=== PATIENT | female | born 1930 | race Caucasian/White ===

== ENCOUNTER 2016-05-18 10:21 | Emergency (ER) | payer OTHER ==
[~2016-05-18] VITALS: Ht 165.1 cm; Wt 49.0 kg
[~2016-05-18 10:21] MED LIST: ATEN-60; BUDE160A3; DIGO0.2570; FENT75DI2 TD; GABA-494; ISOS60TA24; LIS10T PO; LOSA50TA6; MEC25T PO; OMEP20TA69; OXYB5TAB62; PAROXETINE PO; PERCOT PO; PROM25TA5; PROMETHEGAN RE; SIMV10TA84; ZOLP10TA PO
[2016-05-18 11:36] LABS: Basophils # (auto) 0 uL; Basophils % (auto) 0.1 % (0.0-2.0); DEFINITIVE VIEW TRANSMISSION; Eosinophils # (auto) 0.4 uL; Eosinophils % (auto) 5.5 % (0.0-7.0); Hematocrit 29.3 % (36.0-46.0); Hemoglobin 9.1 g/dL (12.2-16.2); Lymphocytes # (auto) 2.4 uL; Lymphocytes % (auto) 33.4 % (10.0-50.0); Mean Corpuscular Hemoglobin 22.5 pg (28.0-32.0); Mean Corpuscular Hgb Conc. 31.1 g/dL (32.0-36.0); Mean Corpuscular Volume 72.4 fL (80.0-100.0); Monocytes # (auto) 0.9 uL; Monocytes % (auto) 12.1 % (0.0-12.0); Neutrophils # (auto) 3.5 uL; Neutrophils % (auto) 48.9 % (37.0-80.0); Platelet Count (auto) 395 10^3/uL (140-450); Red Cell Distribution Width 17.6 % (11.6-16.0); White Blood Cell 7.2 10^3/uL (4.4-10.8)
[2016-05-18 11:59] LABS: Albumin 3.9 g/dL (3.4-5.0); BUN/Creatinine Ratio 23.3; Bilirubin, Total 0.3 mg/dL (0.2-1.0); Calcium 8.9 mg/dL (8.5-10.1); INR 1.08 (0.9-1.15); Potassium 3.5 mmol/L (3.5-5.1); Prothrombin Time 11.1 sec (9.37-12.3); Total Protein 8.1 g/dL (6.4-8.2)
[2016-05-18 12:11] LABS: Urine Bilirubin Negative (Negative); Urine Blood Negative /uL (Negative); Urine Color Colorless (Yellow); Urine Glucose Normal (Normal); Urine Ketone Negative (Negative); Urine Nitrite Negative (Negative); Urine RBC 2 /hpf (0 - 4); Urine Squamous Epithelial Cell FEW /hpf (<5); Urine Urobilinogen Normal (Negative); Urine pH 6.5 (5.0-8.0)
[2016-05-18 14:16] VITALS: BP 171/91
== END 2016-05-18 16:56 | disposition home or self-care (01) ==
LOC: ER 10:29
DX: D50.9 Iron deficiency anemia, unspecified (principal); Z86.73 Personal history of transient ischemic attack (TIA), and cerebral infarction without residual deficits; J44.9 Chronic obstructive pulmonary disease, unspecified; I10 Essential (primary) hypertension; E07.9 Disorder of thyroid, unspecified; Z79.899 Other long term (current) drug therapy
CPT/HCPCS: 36415; 71010; 80053; 81001; 85025; 85049; 85610

== ENCOUNTER 2017-07-20 08:56 | Inpatient (IN) | payer OTHER ==
[~2017-07-20] VITALS: Ht 152.4 cm; Wt 55.8 kg
[~2017-07-20 08:56] MED LIST changes: +CIPR-187 PO; -GABA-494; +GABA100C9
[2017-07-20] MEDS ORDERED: SODIUM CHLORIDE 0.9% 1,000 ML IV ONE ×2 (09:09→14:00)
[2017-07-20] MEDS ORDERED: LEVOFLOXACIN 500MG 100 ML IV ONE (09:15)
[2017-07-20] MEDS ORDERED: DILTIAZEM HCL 25 MG/5 ML VIAL IV ONE (09:15)
[2017-07-20 09:32] LABS: Hematocrit 39.1 % (36.0-46.0); Hemoglobin 13.2 g/dL (12.2-16.2); Mean Corpuscular Hemoglobin 29.6 pg (28.0-32.0); Mean Corpuscular Hgb Conc. 33.7 g/dL (32.0-36.0); Mean Corpuscular Volume 87.7 fL (80.0-100.0); Platelet Count (auto) 280 10^3/uL (140-450); Red Blood Cells 4.46 10^6/uL (4.0-5.20); Red Cell Distribution Width 15.4 % (11.8-14.3)
[2017-07-20 09:40] LABS: Basophils % (manual) 0 (0.0-2.0); Blast Cells 0; Metamyelocytes % 0; Myelocytes % 0; Promyelocytes % 0; Reactive Lymphocytes 0
[2017-07-20] MEDS ORDERED: DIGOXIN (250MCG/ML) 2 ML AMPULE IV ONE (09:45)
[2017-07-20] MEDS ORDERED: ONDANSETRON HCL 4 MG/2 ML VIAL IV ONE (10:15)
[2017-07-20] MEDS ORDERED: MORPHINE SULFATE 4 MG/ML SYR/VIAL IV ONE (10:15)
[2017-07-20 10:56] LABS: Urine Bacteria MANY /hpf (None Seen); Urine Blood 3+ /uL (Negative); Urine Specific Gravity 1.012 (1.001-1.035); Urine WBC 303 /hpf (0 - 5)
[2017-07-20 11:00] LABS: BUN/Creatinine Ratio 30.3; Potassium 4.4 mmol/L (3.5-5.1)
[2017-07-20 11:01] LABS: Bilirubin, Total 0.8 mg/dL (0.2-1.0); Calcium 7.5 mg/dL (8.5-10.1); Magnesium 2.6 mg/dL (1.6-2.6); Total Protein 6.2 g/dL (6.4-8.2)
[2017-07-20 11:30] LABS: Band Neutrophils % (manual) 1; Eosinophils % (manual) 1 (0-7); Lymphocytes % (manual) 8 (10.0-50.0); Monocytes % (manual) 4 (0-12)
[2017-07-20] MEDS ORDERED: ONDANSETRON HCL 4 MG/2 ML VIAL IV PRN (12:45)
[2017-07-20] MEDS ORDERED: ALUM & MAG HYDROX-SIMETH LIQ(MAALOX) 30 ML PO ONE (12:45)
[2017-07-20] MEDS ORDERED: ZOLPIDEM TARTRATE 5 MG TAB PO PRN (12:45)
[2017-07-20] MEDS ORDERED: MORPHINE SULFATE 4 MG/ML SYR/VIAL IV PRN ×2 (12:45)
[2017-07-20] MEDS ORDERED: ACETAMINOPHEN 325 MG TAB PO PRN (12:45)
[2017-07-20] MEDS ORDERED: NITROGLYCERIN 0.4 MG SL TAB SL PRN ×2 (12:45)
[2017-07-20] MEDS ORDERED: LORazepam 0.5 MG TAB PO PRN (12:45)
[2017-07-20] MEDS ORDERED: DILTIAZEM HCL 25 MG/5 ML VIAL IV PRN (13:00)
[2017-07-20] MEDS ORDERED: PANTOPRAZOLE 40 MG TAB PO ONE (13:00)
[2017-07-20] MEDS ORDERED: MECLIZINE HCL 25 MG TAB PO PRN (13:00)
[2017-07-20] MEDS ORDERED: fentaNYL 75MCG/HR 75 MCG/HR PAT TD SCH (13:00)
[2017-07-20] MEDS ORDERED: POTASSIUM CHL 10 Meq TABLET PO ONE ×2 (13:00→13:30)
[2017-07-20] MEDS ORDERED: FUROSEMIDE 40 MG/4 ML VIAL IV ONE (13:00)
[2017-07-20] MEDS ORDERED: cefTRIAXone 1GM/10ml IVPUSH 10 ML IV ONE ×2 (13:00→13:30)
[2017-07-20] MEDS ORDERED: CLOPIDOGREL BISULFATE 75 MG TAB PO ONE (13:15)
[2017-07-20] MEDS ORDERED: DOCUSATE SOD 100 MG CAP PO ONE (13:15)
[2017-07-20] MEDS ORDERED: ASPirin 81 mg TAB PO ONE (13:15)
[2017-07-20] MEDS ORDERED: CARVEDILOL 3.125 MG TAB PO ONE (13:15)
[2017-07-20] MEDS ORDERED: ENOXAPARIN SOD 60 MG/0.6 ML SYRINGE SC ONE (13:30)
[2017-07-20] MEDS ORDERED: GABAPENTIN 100 MG CAP PO ONE (13:30)
[2017-07-20] MEDS ORDERED: BUDESONIDE (INHALATION) 0.5 MG/2 ML NEB NEB ONE (13:30)
[2017-07-20] MEDS ORDERED: ISOSORBIDE MONONITRATE 60 MG TAB PO ONE (13:30)
[2017-07-20] MEDS ORDERED: OXYBUTYNIN CHL 5 MG TAB PO ONE (13:30)
[2017-07-20] MEDS ORDERED: PARoxetine 20 MG TAB PO ONE (13:30)
[2017-07-20] MEDS: GABAPENTIN 100 MG CAP PO SCH ×2 (13:31→22:25)
[2017-07-20] MEDS ORDERED: METOPROLOL TARTRATE 25 MG TAB PO SCH (14:00)
[2017-07-20] MEDS: SODIUM CHLOR 0.9% PF (SALINE LOCK) 10ML VIAL IV SCH ×2 (14:07→22:26)
[2017-07-20] MEDS: AMIODARONE HCL 200 MG TAB PO SCH ×2 (14:14→22:26)
[2017-07-20 15:02] VITALS: BP 121/66
[2017-07-20] MEDS: fentaNYL 25MCG/HR 25 MCG/HR PAT TD SCH (16:43)
[2017-07-20] MEDS ORDERED: SODIUM CHLORIDE 0.9% 250 ML IV ONE (17:45)
[2017-07-20] MEDS: BUDESONIDE (INHALATION) 0.5 MG/2 ML NEB NEB SCH (18:25)
[2017-07-20] MEDS ORDERED: CARVEDILOL 3.125 MG TAB PO SCH (22:00)
[2017-07-20] MEDS ORDERED: LISINOPRIL 10 MG TAB PO SCH (22:00)
[2017-07-20] MEDS ORDERED: ENOXAPARIN SOD 60 MG/0.6 ML SYRINGE SC SCH (22:00)
[2017-07-20] MEDS ORDERED: ATORVASTATIN 20 MG TAB PO SCH (22:00)
[2017-07-20] MEDS: METOPROLOL TARTRATE 25 MG TAB PO SCH (22:25)
[2017-07-20] MEDS: OXYBUTYNIN CHL 5 MG TAB PO SCH (22:26)
[2017-07-20] MEDS: APIXABAN 2.5 MG TAB PO SCH (22:26)
[2017-07-20] MEDS: ATORVASTATIN 20 MG TAB PO SCH (22:26)
[2017-07-21] MEDS ORDERED: PIPERACILLIN-TAZOB 2.25GM 50 ML IV ONE (02:49)
[2017-07-21] MEDS: PIPERACILLIN-TAZOB 2.25GM 50 ML IV SCH ×4 (02:50→22:34)
[2017-07-21] MEDS: ACETAMINOPHEN 325 MG TAB PO PRN ×2 (02:50→12:09)
[2017-07-21] MEDS: SODIUM CHLORIDE 0.9% 1,000 ML IV SCH ×2 (03:55→17:05)
[2017-07-21 04:15] VITALS: BP 137/60
[2017-07-21] MEDS ORDERED: PIPERACILLIN-TAZOB 2.25GM 50 ML IV SCH ×2 (06:00→07:00)
[2017-07-21] MEDS: SODIUM CHLOR 0.9% PF (SALINE LOCK) 10ML VIAL IV SCH ×3 (06:17→22:33)
[2017-07-21] MEDS: AMIODARONE HCL 200 MG TAB PO SCH ×3 (06:25→22:00)
[2017-07-21] MEDS: GABAPENTIN 100 MG CAP PO SCH ×3 (06:36→22:32)
[2017-07-21 06:43] LABS: Albumin 1.7 g/dL (3.4-5.0); Bilirubin, Total 0.6 mg/dL (0.2-1.0); Calcium 7.3 mg/dL (8.5-10.1); Magnesium 2.1 mg/dL (1.6-2.6); Total Protein 5.7 g/dL (6.4-8.2)
[2017-07-21 07:36] LABS: Basophils # (auto) 0.1 uL; Basophils % (auto) 0.3 % (0.0-2.0); Eosinophils # (auto) 0.1 uL; Eosinophils % (auto) 0.8 % (0.0-7.0); Hematocrit 33.4 % (36.0-46.0); Hemoglobin 11.1 g/dL (12.2-16.2); Lymphocytes # (auto) 0.8 uL; Lymphocytes % (auto) 5.2 % (10.0-50.0); Mean Corpuscular Hemoglobin 29.1 pg (28.0-32.0); Mean Corpuscular Hgb Conc. 33.2 g/dL (32.0-36.0); Mean Corpuscular Volume 87.8 fL (80.0-100.0); Monocytes # (auto) 1.1 uL; Neutrophils # (auto) 13.9 uL; Neutrophils % (auto) 86.7 % (37.0-80.0); Platelet Count (auto) 260 10^3/uL (140-450); Red Cell Distribution Width 15.1 % (11.8-14.3)
[2017-07-21 08:00] VITALS: BP 115/75
[2017-07-21] MEDS ORDERED: cefTRIAXone 1GM/10ml IVPUSH 10 ML IV SCH (09:00)
[2017-07-21] MEDS ORDERED: CLOPIDOGREL BISULFATE 75 MG TAB PO SCH (10:00)
[2017-07-21] MEDS ORDERED: ISOSORBIDE MONONITRATE 60 MG TAB PO SCH (10:00)
[2017-07-21] MEDS ORDERED: LOSARTAN POTASSIUM 25 MG TAB PO SCH (10:00)
[2017-07-21] MEDS ORDERED: ENOXAPARIN SOD 60 MG/0.6 ML SYRINGE SC SCH (10:00)
[2017-07-21] MEDS ORDERED: DIGOXIN 0.25 MG TAB PO SCH (10:00)
[2017-07-21] MEDS ORDERED: FUROSEMIDE 40 MG/4 ML VIAL IV SCH (10:00)
[2017-07-21] MEDS: BUDESONIDE (INHALATION) 0.5 MG/2 ML NEB NEB SCH ×2 (10:13→20:48)
[2017-07-21] MEDS: ASPirin 81 mg TAB PO SCH (10:15)
[2017-07-21] MEDS: POTASSIUM CHL 10 Meq TABLET PO SCH (10:15)
[2017-07-21] MEDS: OXYBUTYNIN CHL 5 MG TAB PO SCH ×2 (10:15→22:32)
[2017-07-21] MEDS: PANTOPRAZOLE 40 MG TAB PO SCH (10:16)
[2017-07-21] MEDS: APIXABAN 2.5 MG TAB PO SCH ×2 (10:16→22:33)
[2017-07-21] MEDS: DOCUSATE SOD 100 MG CAP PO SCH (10:16)
[2017-07-21] MEDS: METOPROLOL TARTRATE 25 MG TAB PO SCH ×2 (10:16→22:00)
[2017-07-21] MEDS: PARoxetine 20 MG TAB PO SCH (10:17)
[2017-07-21 11:50] VITALS: BP 103/47
[2017-07-21 15:50] VITALS: BP 99/46
[2017-07-21 21:49] VITALS: BP 99/58
[2017-07-21] MEDS: ATORVASTATIN 20 MG TAB PO SCH (22:32)
[2017-07-22 05:00] VITALS: BP 116/69
[2017-07-22] MEDS: PIPERACILLIN-TAZOB 2.25GM 50 ML IV SCH ×3 (05:22→17:30)
[2017-07-22] MEDS: SODIUM CHLORIDE 0.9% 1,000 ML IV SCH ×2 (05:40→17:30)
[2017-07-22] MEDS: SODIUM CHLOR 0.9% PF (SALINE LOCK) 10ML VIAL IV SCH ×3 (05:40→22:00)
[2017-07-22 05:41] LABS: Hemoglobin 11.2 g/dL (12.2-16.2); Mean Corpuscular Hemoglobin 29.3 pg (28.0-32.0); Mean Corpuscular Volume 88.9 fL (80.0-100.0); Platelet Count (auto) 298 10^3/uL (140-450); Red Blood Cells 3.82 10^6/uL (4.0-5.20); Red Cell Distribution Width 15.3 % (11.8-14.3)
[2017-07-22] MEDS: GABAPENTIN 100 MG CAP PO SCH ×3 (05:41→22:53)
[2017-07-22] MEDS: AMIODARONE HCL 200 MG TAB PO SCH ×3 (05:42→22:53)
[2017-07-22] MEDS: ACETAMINOPHEN 325 MG TAB PO PRN (05:42)
[2017-07-22 05:49] LABS: Basophils % (manual) 0 (0.0-2.0); Myelocytes % 0; Promyelocytes % 0
[2017-07-22 05:50] LABS: Blast Cells 0; Reactive Lymphocytes 0
[2017-07-22 05:59] LABS: BUN/Creatinine Ratio 32.7; Calcium 7.8 mg/dL (8.5-10.1); Magnesium 2.1 mg/dL (1.6-2.6); Phosphorus 3.4 mg/dL (2.5-4.90); Potassium 4.2 mmol/L (3.5-5.1)
[2017-07-22 06:11] LABS: Band Neutrophils % (manual) 4; Eosinophils % (manual) 3 (0-7); Lymphocytes % (manual) 6 (10.0-50.0); Metamyelocytes % 3; Monocytes % (manual) 10 (0-12)
[2017-07-22 09:00] VITALS: BP 122/66
[2017-07-22] MEDS: BUDESONIDE (INHALATION) 0.5 MG/2 ML NEB NEB SCH ×2 (10:16→22:00)
[2017-07-22] MEDS: POTASSIUM CHL 10 Meq TABLET PO SCH (10:19)
[2017-07-22] MEDS: PARoxetine 20 MG TAB PO SCH (10:20)
[2017-07-22] MEDS: DOCUSATE SOD 100 MG CAP PO SCH (10:20)
[2017-07-22] MEDS: PANTOPRAZOLE 40 MG TAB PO SCH (10:20)
[2017-07-22] MEDS: ASPirin 81 mg TAB PO SCH (10:20)
[2017-07-22] MEDS: APIXABAN 2.5 MG TAB PO SCH ×2 (10:20→22:53)
[2017-07-22] MEDS: OXYBUTYNIN CHL 5 MG TAB PO SCH ×2 (10:21→22:53)
[2017-07-22] MEDS: METOPROLOL TARTRATE 25 MG TAB PO SCH ×2 (10:21→22:55)
[2017-07-22 13:00] VITALS: BP 114/100
[2017-07-22 17:24] VITALS: BP_SYST 107
[2017-07-22] MEDS: HYDROcodone-ACET 5/325MG TAB PO PRN (17:30)
[2017-07-22 22:00] VITALS: BP 112/53
[2017-07-22] MEDS: ATORVASTATIN 20 MG TAB PO SCH (22:52)
[2017-07-23] VITALS (7 sets, daily range): BP systolic 112–136; BP diastolic 40–63
[2017-07-23] MEDS: PIPERACILLIN-TAZOB 2.25GM 50 ML IV SCH ×4 (00:55→18:55)
[2017-07-23] MEDS: AMIODARONE HCL 200 MG TAB PO SCH ×3 (05:38→22:54)
[2017-07-23] MEDS: SODIUM CHLOR 0.9% PF (SALINE LOCK) 10ML VIAL IV SCH ×3 (05:38→22:00)
[2017-07-23] MEDS: GABAPENTIN 100 MG CAP PO SCH ×3 (05:38→22:54)
[2017-07-23] MEDS: HYDROcodone-ACET 5/325MG TAB PO PRN (08:51)
[2017-07-23] MEDS: SODIUM CHLORIDE 0.9% 1,000 ML IV SCH ×2 (08:52→22:55)
[2017-07-23] MEDS: BUDESONIDE (INHALATION) 0.5 MG/2 ML NEB NEB SCH ×2 (09:35→22:28)
[2017-07-23] MEDS: ASPirin 81 mg TAB PO SCH (10:52)
[2017-07-23] MEDS: DOCUSATE SOD 100 MG CAP PO SCH (10:52)
[2017-07-23] MEDS: OXYBUTYNIN CHL 5 MG TAB PO SCH ×2 (10:52→22:53)
[2017-07-23] MEDS: POTASSIUM CHL 10 Meq TABLET PO SCH (10:52)
[2017-07-23] MEDS: PARoxetine 20 MG TAB PO SCH (10:53)
[2017-07-23] MEDS: APIXABAN 2.5 MG TAB PO SCH (10:53)
[2017-07-23] MEDS: PANTOPRAZOLE 40 MG TAB PO SCH (10:53)
[2017-07-23] MEDS: METOPROLOL TARTRATE 25 MG TAB PO SCH ×2 (10:53→22:54)
[2017-07-23] MEDS ORDERED: HEPARIN DRIP/D5W 100UNITS/ML 250 ML IV SCH ×2 (13:00→20:45)
[2017-07-23 13:59] LABS: INR 1.64 (0.9-1.15); Partial Thromboplastin Time 42.6 sec (22.64-33.71)
[2017-07-23 14:00] LABS: Hematocrit 32.1 % (36.0-46.0); Hemoglobin 10.6 g/dL (12.2-16.2); Mean Corpuscular Volume 87.9 fL (80.0-100.0); Platelet Count (auto) 347 10^3/uL (140-450); Red Blood Cells 3.65 10^6/uL (4.0-5.20); Red Cell Distribution Width 15.4 % (11.8-14.3); White Blood Cell 15.6 10^3/uL (4.4-10.8)
[2017-07-23 14:17] LABS: Basophils % (manual) 0 (0.0-2.0); Blast Cells 0; Metamyelocytes % 0; Myelocytes % 0; Promyelocytes % 0; Reactive Lymphocytes 0
[2017-07-23 14:25] LABS: Band Neutrophils % (manual) 2; Eosinophils % (manual) 7 (0-7); Lymphocytes % (manual) 5 (10.0-50.0); Monocytes % (manual) 8 (0-12)
[2017-07-23] MEDS: fentaNYL 25MCG/HR 25 MCG/HR PAT TD SCH (16:19)
[2017-07-23 19:50] LABS: INR 1.59 (0.9-1.15); Partial Thromboplastin Time 48.8 sec (22.64-33.71); Prothrombin Time 17.4 sec (9.37-12.3)
[2017-07-23] MEDS: ATORVASTATIN 20 MG TAB PO SCH (22:53)
[2017-07-24] MEDS: PIPERACILLIN-TAZOB 2.25GM 50 ML IV SCH ×3 (01:35→11:56)
[2017-07-24 05:00] VITALS: BP 137/69
[2017-07-24 05:20] LABS: INR 1.39 (0.9-1.15); Partial Thromboplastin Time 65.5 sec (22.64-33.71); Prothrombin Time 15.2 sec (9.37-12.3)
[2017-07-24] MEDS: SODIUM CHLOR 0.9% PF (SALINE LOCK) 10ML VIAL IV SCH ×2 (06:12→15:03)
[2017-07-24] MEDS: GABAPENTIN 100 MG CAP PO SCH ×2 (06:13→15:05)
[2017-07-24] MEDS: AMIODARONE HCL 200 MG TAB PO SCH ×2 (06:13→15:05)
[2017-07-24 06:34] LABS: Potassium 4.4 mmol/L (3.5-5.1)
[2017-07-24 06:35] LABS: BUN/Creatinine Ratio 27.5; Calcium 7.6 mg/dL (8.5-10.1)
[2017-07-24 06:53] LABS: Hematocrit 34.4 % (36.0-46.0); Hemoglobin 11.3 g/dL (12.2-16.2); Mean Corpuscular Hemoglobin 29.2 pg (28.0-32.0); Mean Corpuscular Hgb Conc. 32.8 g/dL (32.0-36.0); Platelet Count (auto) 345 10^3/uL (140-450); Red Blood Cells 3.87 10^6/uL (4.0-5.20); Red Cell Distribution Width 15.6 % (11.8-14.3); White Blood Cell 13.7 10^3/uL (4.4-10.8)
[2017-07-24 06:58] LABS: Basophils % (manual) 0 (0.0-2.0); Blast Cells 0; Metamyelocytes % 0; Myelocytes % 0; Promyelocytes % 0; Reactive Lymphocytes 0
[2017-07-24 07:30] VITALS: BP 164/75
[2017-07-24 09:00] VITALS: BP 164/75
[2017-07-24] MEDS: HYDROcodone-ACET 5/325MG TAB PO PRN ×2 (09:09→19:02)
[2017-07-24 09:46] LABS: INR 1.35 (0.9-1.15); Partial Thromboplastin Time 49.5 sec (22.64-33.71); Prothrombin Time 14.8 sec (9.37-12.3)
[2017-07-24 10:08] LABS: Band Neutrophils % (manual) 3; Eosinophils % (manual) 8 (0-7); Lymphocytes % (manual) 5 (10.0-50.0); Monocytes % (manual) 10 (0-12)
[2017-07-24] MEDS: BUDESONIDE (INHALATION) 0.5 MG/2 ML NEB NEB SCH (10:30)
[2017-07-24] MEDS: ASPirin 81 mg TAB PO SCH (11:43)
[2017-07-24] MEDS: POTASSIUM CHL 10 Meq TABLET PO SCH (11:44)
[2017-07-24] MEDS: DOCUSATE SOD 100 MG CAP PO SCH (11:44)
[2017-07-24] MEDS: OXYBUTYNIN CHL 5 MG TAB PO SCH (11:44)
[2017-07-24] MEDS: METOPROLOL TARTRATE 25 MG TAB PO SCH (11:44)
[2017-07-24] MEDS: PANTOPRAZOLE 40 MG TAB PO SCH (11:45)
[2017-07-24] MEDS: PARoxetine 20 MG TAB PO SCH (11:45)
[2017-07-24] MEDS: SODIUM CHLORIDE 0.9% 1,000 ML IV SCH (12:03)
[2017-07-24 13:00] VITALS: BP 145/55
[2017-07-24] MEDS ORDERED: APIXABAN 2.5 MG TAB PO SCH ×2 (13:00→22:00)
[2017-07-24 13:42] VITALS: BP 164/75
[2017-07-24 16:00] VITALS: BP 143/56
== END 2017-07-24 19:40 | DRG 871 ==
LOC: EDBD 08:56 → ER 08:56 → TELE 08:57 → DOU IN ICU 07-21 04:09 → TELE-WESTW 07-21 17:00
PROVIDERS: ADMIT Internal Medicine; ATTEND Internal Medicine
DX: A41.50 Gram-negative sepsis, unspecified (principal); I50.43 Acute on chronic combined systolic (congestive) and diastolic (congestive) heart failure; I21.4 Non-ST elevation (NSTEMI) myocardial infarction; E43 Unspecified severe protein-calorie malnutrition; N17.0 Acute kidney failure with tubular necrosis; I48.91 Unspecified atrial fibrillation; E86.1 Hypovolemia; N39.0 Urinary tract infection, site not specified; I13.0 Hypertensive heart and chronic kidney disease with heart failure and stage 1 through stage 4 chronic kidney disease, or unspecified chronic kidney disease; I48.92 Unspecified atrial flutter; E87.1 Hypo-osmolality and hyponatremia; G89.4 Chronic pain syndrome; B96.20 Unspecified Escherichia coli [E. coli] as the cause of diseases classified elsewhere; B96.89 Other specified bacterial agents as the cause of diseases classified elsewhere; E07.9 Disorder of thyroid, unspecified; E78.5 Hyperlipidemia, unspecified; E83.51 Hypocalcemia; I25.10 Atherosclerotic heart disease of native coronary artery without angina pectoris; J45.909 Unspecified asthma, uncomplicated; K21.9 Gastro-esophageal reflux disease without esophagitis; R62.7 Adult failure to thrive; Z79.01 Long term (current) use of anticoagulants; Z79.82 Long term (current) use of aspirin; Z82.49 Family history of ischemic heart disease and other diseases of the circulatory system; Z83.3 Family history of diabetes mellitus; Z86.73 Personal history of transient ischemic attack (TIA), and cerebral infarction without residual deficits; Z90.710 Acquired absence of both cervix and uterus; Z95.5 Presence of coronary angioplasty implant and graft; Z79.899 Other long term (current) drug therapy
CPT/HCPCS: 36415; 51702; 71045; 80048; 80053; 80061; 81001; 82962; 83605; 83735; 83880; 84100; 84484; 85007; 85025; 85027; 85610; 85730; 87040; 87045; 87077; 87081; 87086; 87088; 87186; 87493; 87804; 87899; 93005; 93306; 93926; 94640; 96361; 96372; 96374; 99291; J1956; J2405; J2543; J7042

== ENCOUNTER 2019-03-09 16:10 | Emergency (ER) | payer OTHER ==
[~2019-03-09] VITALS: Ht 165.1 cm; Wt 49.9 kg
[~2019-03-09 16:10] MED LIST changes: -ATEN-60; -CIPR-187 PO; -DIGO0.2570; -LOSA50TA6; +OXYB5TAB24; -OXYB5TAB62
[2019-03-09 16:53] VITALS: BP 176/87
[2019-03-09 18:14] LABS: Urine Bacteria NONE SEEN /hpf (None Seen); Urine Blood Negative /uL (Negative); Urine Specific Gravity 1.013 (1.001-1.035); Urine WBC <1 /hpf (0 - 5)
== END 2019-03-09 22:10 | disposition left against medical advice (07) ==
LOC: ER 16:16
DX: R39.15 Urgency of urination (principal); M54.5 Low back pain; Z53.21 Procedure and treatment not carried out due to patient leaving prior to being seen by health care provider
CPT/HCPCS: 81001